=== PATIENT | female | born 1950 | race African-American/Black ===

== ENCOUNTER 2020-02-08 12:35 | Inpatient (IN) | payer SELFPAY ==
[~2020-02-08] VITALS: Ht 165.1 cm; Wt 104.3 kg
[2020-02-08 13:30] LABS: BASOPHILS % 0.7 % (0.0-2.0); EOSINOPHILS % 0.1 % (0.0-5.0); HEMOGLOBIN. 12.9 g/dL (12.0-16.0); LYMPHOCYTES % 25.4 % (20.0-50.0); MEAN CORPUSCULAR HEMOGLOBIN 28.8 pg (28.0-32.0); MEAN CORPUSCULAR VOLUME 86.9 fL (81.0-99.0); MEAN PLATELET VOLUME 7.8 fl (7.4-10.4); MONOCYTES % 10.8 % (2.0-8.0); PLATELET 272 x1000/uL (130-400); RED BLOOD CELL COUNT 4.49 mill/uL (4.2-5.4); RED CELL DISTRIBUTION WIDTH 15.4 % (11.6-14.6)
[2020-02-08 13:37] LABS: CHLORIDE 106 mEq/L (98-107)
[2020-02-08] MEDS ORDERED: IPRATROPIUM BROMIDE (0.02%) 0.5MG/2.5ML NEB HHN STA (14:52)
[2020-02-08] MEDS ORDERED: ALBUTEROL (0.083%) 2.5MG/3ML NEB HHN STA (14:52)
[2020-02-08] MEDS ORDERED: SODIUM CHLORIDE 0.9% 1,000 ML IV ONE (15:00)
[2020-02-08] MEDS ORDERED: ALBUTEROL 6.7GM HFA INHALER ORI PRN (19:00)
[2020-02-08] MEDS ORDERED: DIPHENHYDRAMINE 50MG/ML VIAL IV PRN (19:00)
[2020-02-08] MEDS ORDERED: MAGNESIUM HYDROXIDE 400MG/5ML 30ML UDC PO PRN (19:00)
[2020-02-08] MEDS ORDERED: ZOLPIDEM TARTRATE 5MG TABLET PO PRN (19:00)
[2020-02-08] MEDS ORDERED: ONDANSETRON HCL 4MG/2ML INJ IV PRN (19:00)
[2020-02-08] MEDS ORDERED: CLONIDINE 0.1MG TABLET PO PRN (19:00)
[2020-02-08] MEDS ORDERED: MAGNESIUM/ALUMINUM HYDROXIDE/SIMETHICONE 30ML UDC PO PRN (19:00)
[2020-02-08] MEDS ORDERED: POTASSIUM CHLORIDE 20MEQ TABLET SR PO NR (19:00)
[2020-02-08] MEDS ORDERED: ACETAMINOPHEN 325MG TABLET PO PRN (19:00)
[2020-02-08] MEDS ORDERED: GUAIFENESIN 200MG/10ML SUGAR FREE UDC PO PRN (19:00)
[2020-02-08] MEDS ORDERED: CEFTRIAXONE 1 G PREMIX 50 ML IV SCH (19:00)
[2020-02-08] MEDS: GUAIFENESIN 600MG ER TABLET PO SCH (19:59)
[2020-02-08] MEDS ORDERED: AZITHROMYCIN 500 MG in DEXT 5% WATER 250 ML IV SCH (20:00)
[2020-02-08 23:10] VITALS: BP_SYST 142; BP_DIAS 80; BP_DIAS 81
[2020-02-08] MEDS ORDERED: METO25TA6 PO (23:49)
[2020-02-08] MEDS ORDERED: N325 SL (23:49)
[2020-02-08] MEDS ORDERED: ROSU20TA2 PO (23:49)
[2020-02-08] MEDS ORDERED: ASPI-1497 PO (23:49)
[2020-02-08] MEDS ORDERED: LOSA25TA26 PO (23:49)
[2020-02-09] MEDS: ACETAMINOPHEN 325MG TABLET PO PRN (00:39)
[2020-02-09] MEDS: FAMOTIDINE 20MG TABLET PO SCH ×3 (00:39→21:28)
[2020-02-09] MEDS: DEXAMETHASONE 10 MG/ML VIAL IV SCH ×2 (00:40→08:02)
[2020-02-09] MEDS: SODIUM CHLORIDE 0.9% INJ 3ML FLUSH IVF SCH ×4 (00:40→21:29)
[2020-02-09] MEDS: CEFTRIAXONE 1,000 MG in DEXTROSE 5% WATER 50 ML IV SCH (02:12)
[2020-02-09 04:00] VITALS: BP 145/86
[2020-02-09 05:26] LABS: CHLORIDE 108 mEq/L (98-107)
[2020-02-09 05:42] LABS: PHOSPHORUS 1.9 mg/dL (2.5-4.9)
[2020-02-09 08:00] VITALS: BP 155/71
[2020-02-09] MEDS: GUAIFENESIN 600MG ER TABLET PO SCH ×2 (08:02→21:29)
[2020-02-09] MEDS: ENOXAPARIN 30MG/0.3ML SYR SUBCUT SCH ×2 (08:03→21:29)
[2020-02-09 11:54] VITALS: BP 142/73
[2020-02-09 16:10] VITALS: BP 140/70
[2020-02-09 20:00] VITALS: BP 135/59
[2020-02-10] VITALS: BP 150/64
[2020-02-10] MEDS: CEFTRIAXONE 1,000 MG in DEXTROSE 5% WATER 50 ML IV SCH (01:09)
[2020-02-10 04:00] VITALS: BP 145/60
[2020-02-10] MEDS: AZITHROMYCIN 500 MG in DEXT 5% WATER 250 ML IV SCH (04:26)
[2020-02-10] MEDS: ALBUTEROL 6.7GM HFA INHALER ORI SCH ×5 (04:34→23:51)
[2020-02-10] MEDS: SODIUM CHLORIDE 0.9% INJ 3ML FLUSH IVF SCH ×3 (05:03→20:05)
[2020-02-10 08:00] VITALS: BP 144/85
[2020-02-10] MEDS: ENOXAPARIN 30MG/0.3ML SYR SUBCUT SCH ×2 (08:49→20:04)
[2020-02-10] MEDS: DEXAMETHASONE 10 MG/ML VIAL IV SCH (08:49)
[2020-02-10] MEDS: GUAIFENESIN 600MG ER TABLET PO SCH ×2 (08:49→20:05)
[2020-02-10] MEDS: FAMOTIDINE 20MG TABLET PO SCH ×2 (08:49→20:05)
[2020-02-10 12:00] VITALS: BP 150/81
[2020-02-10 16:00] VITALS: BP 159/98
[2020-02-10] MEDS: ACETAMINOPHEN 325MG TABLET PO PRN (16:34)
[2020-02-10 20:00] VITALS: BP 157/86
[2020-02-10] MEDS: TEMAZEPAM 15MG CAPSULE PO SCH (20:05)
[2020-02-11] VITALS: BP_SYST 131; BP_SYST 156; BP_DIAS 68; BP_DIAS 70
[2020-02-11] MEDS: CEFTRIAXONE 1,000 MG in DEXTROSE 5% WATER 50 ML IV SCH (00:07)
[2020-02-11] MEDS: AZITHROMYCIN 500 MG in DEXT 5% WATER 250 ML IV SCH (01:03)
[2020-02-11 04:00] VITALS: BP 156/68
[2020-02-11] MEDS: SODIUM CHLORIDE 0.9% INJ 3ML FLUSH IVF SCH ×3 (05:32→23:18)
[2020-02-11] MEDS: ALBUTEROL 6.7GM HFA INHALER ORI SCH ×4 (05:32→23:50)
[2020-02-11 08:00] VITALS: BP 135/67
[2020-02-11] MEDS: FAMOTIDINE 20MG TABLET PO SCH ×2 (08:21→20:49)
[2020-02-11] MEDS: DEXAMETHASONE 10 MG/ML VIAL IV SCH (08:21)
[2020-02-11] MEDS: ENOXAPARIN 30MG/0.3ML SYR SUBCUT SCH ×2 (08:21→20:50)
[2020-02-11] MEDS: GUAIFENESIN 600MG ER TABLET PO SCH ×2 (08:21→20:49)
[2020-02-11 09:20] LABS: BG BASE EXCESS 1.3 mmol/L (-2.0-2.0); BG DEOXYHEMOGLOBIN 2.7 % (0.0-5.0); BG FRACTION INSPIRED OXYGEN 21; BG HCO3 ACT 24.8 mmol/L (22.0-26.0); BG METHEMOGLOBIN 0.3 % (0.0-1.5); BG OXYGEN SATURATION 97.3 % (92.0-98.5); BG PCO2 35.6 mmHg (35.0-45.0); BG PO2 92.9 mmHg (75.0-100.0); BG SAMPLE SITE RIGHT RADIAL; BG TOTAL HEMOGLOBIN 13.3 g/dL (12.0-18.0); BG VENT MODE ROOM AIR
[2020-02-11 12:00] VITALS: BP 135/82
[2020-02-11 16:00] VITALS: BP 133/72
[2020-02-11 20:00] VITALS: BP 144/85
[2020-02-11] MEDS: TEMAZEPAM 15MG CAPSULE PO SCH (20:49)
[2020-02-12] VITALS: BP 99/66
[2020-02-12] MEDS: CEFTRIAXONE 1,000 MG in DEXTROSE 5% WATER 50 ML IV SCH ×2
[2020-02-12] MEDS: AZITHROMYCIN 500 MG in DEXT 5% WATER 250 ML IV SCH (01:16)
[2020-02-12 04:00] VITALS: BP 154/81
[2020-02-12] MEDS: ALBUTEROL 6.7GM HFA INHALER ORI SCH ×4 (05:24→23:34)
[2020-02-12] MEDS: SODIUM CHLORIDE 0.9% INJ 3ML FLUSH IVF SCH ×3 (05:24→21:41)
[2020-02-12 08:00] VITALS: BP 154/81
[2020-02-12] MEDS: DEXAMETHASONE 10 MG/ML VIAL IV SCH (08:08)
[2020-02-12] MEDS: GUAIFENESIN 600MG ER TABLET PO SCH ×2 (08:08→20:37)
[2020-02-12] MEDS: FAMOTIDINE 20MG TABLET PO SCH ×2 (08:08→21:42)
[2020-02-12] MEDS: ENOXAPARIN 30MG/0.3ML SYR SUBCUT SCH ×2 (08:09→20:14)
[2020-02-12 12:00] VITALS: BP 142/78
[2020-02-12 16:11] VITALS: BP 136/66
[2020-02-12 20:00] VITALS: BP 158/98
[2020-02-12] MEDS: TEMAZEPAM 15MG CAPSULE PO SCH (20:14)
[2020-02-13] VITALS: BP 142/65
[2020-02-13 04:00] VITALS: BP 148/67
[2020-02-13] MEDS: ALBUTEROL 6.7GM HFA INHALER ORI SCH ×2 (05:28→12:00)
[2020-02-13] MEDS: SODIUM CHLORIDE 0.9% INJ 3ML FLUSH IVF SCH (05:28)
[2020-02-13 08:00] VITALS: BP 159/82
[2020-02-13] MEDS ORDERED: DEXAMETHASONE 4MG TABLET PO NR (09:00)
[2020-02-13] MEDS: GUAIFENESIN 600MG ER TABLET PO SCH (09:15)
[2020-02-13] MEDS: ENOXAPARIN 30MG/0.3ML SYR SUBCUT SCH (09:15)
[2020-02-13] MEDS: FAMOTIDINE 20MG TABLET PO SCH (09:15)
[2020-02-13 12:00] VITALS: BP 156/74
[2020-02-13 13:18] VITALS: BP 156/74
== END 2020-02-13 15:20 | disposition home or self-care (01) | DRG 720 ==
LOC: EDSEX 12:35 → ER 12:35 → 7WST 16:12 → ENRESERV 21:38
PROVIDERS: ADMIT Internal Medicine; ATTEND Internal Medicine
PROC: XW033E5 Introduction of Remdesivir Anti-infective into Peripheral Vein, Percutaneous Approach, New Technology Group 5 (ICD-10-PCS; principal; 2020-02-10)
DX: A41.89 Other specified sepsis (principal); U07.1 COVID-19; J96.00 Acute respiratory failure, unspecified whether with hypoxia or hypercapnia; E66.9 Obesity, unspecified; E78.5 Hyperlipidemia, unspecified; I25.10 Atherosclerotic heart disease of native coronary artery without angina pectoris; I10 Essential (primary) hypertension; J20.8 Acute bronchitis due to other specified organisms; J44.0 Chronic obstructive pulmonary disease with (acute) lower respiratory infection; J44.1 Chronic obstructive pulmonary disease with (acute) exacerbation; E78.00 Pure hypercholesterolemia, unspecified; Z87.891 Personal history of nicotine dependence; Z88.6 Allergy status to analgesic agent; Z79.899 Other long term (current) drug therapy; Z68.38 Body mass index [BMI] 38.0-38.9, adult
CPT/HCPCS: 36415; 36600; 71045; 80053; 82375; 82728; 82805; 83615; 83735; 83880; 84100; 84484; 85025; 85379; 86140; 87635; 93005; 94640; 99285; J0456; J0696; J1100; J1650; J7030; J7060; J8540